=== PATIENT | female | born 1990 | race American Indian/Alaskan Native ===

== ENCOUNTER 2018-09-11 15:13 | Emergency (ER) | payer SELFPAY ==
[2018-09-11 15:53] VITALS: BP 119/81
[2018-09-11] MEDS ORDERED: TYLENOL PO ONE (15:57)
[2018-09-11] MEDS ORDERED: DECADRON IV ONE (23:15)
[2018-09-11] MEDS ORDERED: BICILLIN L-A IM ONE (23:16)
--- NOTE | 2018-09-11 23:43 | Emergency Department Report ---
ED ENT HPI - General Chief complaint: Sore Throat Stated complaint: STREP THROAT Time Seen by Provider: 09/11/18 23:14 Source: patient Mode of arrival: Ambulatory Limitations: No Limitations - History of Present Illness Initial comments: [facility] fever 3 days clear postnasal drip will swelling pain 5/10 MAXIMUM TEMPERATURE 102 Fahrenheit orally complaint: sore throat Onset/Timin -: days(s) Location: throat Severity: moderate Severity scale (0 -10): 5 Quality: aching, sharp Consistency: intermittent Improves with: none Worsens with: swallowing Associated Symptoms: fever, pain with swallowing, sore throat - Related Data Previous Rx's Medication Instructions Recorded Last Taken Type Benzocaine/Menth/Cetylpyrd 8 each MM Q2H #3 packet 09/11/18 Unknown Rx [Cepacol X Strength] Dexamethasone [Decadron] 4 mg PO Q12H #4 tablet 09/11/18 Unknown Rx Ibuprofen 800 mg PO TID PRN #30 tablet 09/11/18 Unknown Rx Allergies Allergy/AdvReac Type Severity Reaction Status Date / Time No Known Allergies Allergy Verified 09/11/18 15:48 ED Dental HPI - General Chief complaint: Sore Throat Stated complaint: STREP THROAT Time Seen by Provider: 09/11/18 23:14 Source: patient Mode of arrival: Ambulatory Limitations: No Limitations - Related Data Previous Rx's Medication Instructions Recorded Last Taken Type Benzocaine/Menth/Cetylpyrd 8 each MM Q2H #3 packet 09/11/18 Unknown Rx [Cepacol X Strength] Dexamethasone [Decadron] 4 mg PO Q12H #4 tablet 09/11/18 Unknown Rx Ibuprofen 800 mg PO TID PRN #30 tablet 09/11/18 Unknown Rx Allergies Allergy/AdvReac Type Severity Reaction Status Date / Time No Known Allergies Allergy Verified 09/11/18 15:48 ED Review of Systems ROS: Stated complaint: STREP THROAT Other details as noted in HPI Constitutional: denies: chills, fever Eyes: denies: eye pain, eye discharge, vision change ENT: throat pain Respiratory: denies: cough, shortness of breath, wheezing Cardiovascular: denies: chest pain, palpitations Endocrine: no symptoms reported Gastrointestinal: denies: abdominal pain, nausea, diarrhea Genitourinary: denies: urgency, dysuria, discharge Musculoskeletal: denies: back pain, joint swelling, arthralgia Skin: denies: rash, lesions Neurological: denies: headache, weakness, paresthesias Psychiatric: denies: anxiety, depression Hematological/Lymphatic: denies: easy bleeding, easy bruising ED Past Medical Hx - Past Medical History Previous Medical History?: No - Surgical History Past Surgical History?: No - Social History Smoking Status: Never Smoker Substance Use Type: None - Medications Home Medications: Home Medications Medication Instructions Recorded Confirmed Last Taken Type Benzocaine/Menth/Cetylpyrd 8 each MM Q2H #3 packet 09/11/18 Unknown Rx [Cepacol X Strength] Dexamethasone [Decadron] 4 mg PO Q12H #4 tablet 09/11/18 Unknown Rx Ibuprofen 800 mg PO TID PRN #30 tablet 09/11/18 Unknown Rx ED Physical Exam - General Limitations: No Limitations General appearance: alert, in no apparent distress - Head Head exam: Present: atraumatic, normocephalic - Eye Eye exam: Present: normal appearance, PERRL, EOMI Pupils: Present: normal accommodation - ENT ENT exam: Present: TM's normal bilaterally, normal external ear exam - Expanded ENT Exam Expanded Throat exam: Positive: tonsillar erythema, tonsillomegaly, tonsillar exudate. Negative: R peritonsillar mass, L peritonsillar mass - Neck Neck exam: Present: normal inspection, full ROM, lymphadenopathy. Absent: tenderness, meningismus, thyromegaly - Respiratory Respiratory exam: Present: normal lung sounds bilaterally. Absent: respiratory distress, wheezes, stridor, chest wall tenderness - Cardiovascular Cardiovascular Exam: Present: regular rate, normal rhythm. Absent: systolic murmur, diastolic murmur, rubs, gallop - GI/Abdominal GI/Abdominal exam: Present: soft, normal bowel sounds - Rectal Rectal exam: Present: deferred - Extremities Exam Extremities exam: Present: normal inspection - Back Exam Back exam: Present: normal inspection - Neurological Exam Neurological exam: Present: alert, oriented X3 - Psychiatric Psychiatric exam: Present: normal affect, normal mood - Skin Skin exam: Present: warm, dry, intact, normal color. Absent: rash ED Course Vital Signs 09/11/18 15:49 Temperature 100.1 F H Pulse Rate 90 Respiratory 16 Rate Blood Pressure 119/81 O2 Sat by Pulse 100 Oximetry ED Medical Decision Making - Medical Decision Making This is strep throat strep culture positive for strep plan Decadron penicillin LA IM DC'd home on ibuprofen and Cepacol lozenges patient will follow with PCP in 2-3 days patient verbalizes agreement and understanding of same fever and pain are reduced at this time patient DC'd home in stable condition Critical care attestation.: If time is entered above; I have spent that time in minutes in the direct care of this critically ill patient, excluding procedure time. ED Disposition Clinical Impression: Pharyngitis Qualifiers: Pharyngitis/tonsillitis etiology: streptococcus Qualified Code(s): J02.0 - Streptococcal pharyngitis Disposition: DC-01 TO HOME OR SELFCARE Is pt being admited?: No Does the pt Need Aspirin: No Condition: Good Instructions: Pharyngitis (ED), Strep Throat (ED) Prescriptions: Benzocaine/Menth/Cetylpyrd [Cepacol X Strength] 8 each MM Q2H #3 packet Dexamethasone [Decadron] 4 mg PO Q12H #4 tablet Ibuprofen 800 mg PO TID PRN #30 tablet PRN Reason: pain fever Referrals: [facility] [Outside] - 3-5 Days Forms: Work/School Release Form(ED) Time of Disposition: 23:43
== END 2018-09-11 23:51 | disposition home or self-care (01) ==
LOC: ED 15:13
DX: J02.0 Streptococcal pharyngitis (principal)
CPT/HCPCS: 87430; 96372; 96374; 99283; J0561; J1100